=== PATIENT | male | born 1950 | race Caucasian/White ===

== ENCOUNTER 2016-09-19 01:48 | Emergency (ER) | payer OTHER, MEDICAID ==
[~2016-09-19] VITALS: Ht 177.8 cm; Wt 89.8 kg
[2016-09-19 01:51] VITALS: BP 154/86
--- NOTE | 2016-09-19 02:02 | NUR ---
AMBULATED TO ER BED 1
--- NOTE | 2016-09-19 02:03 | NUR ---
Patient being evaluated by physician at bedside.
--- NOTE | 2016-09-19 02:05 | NUR ---
66 YEARS OLD MALE C/O OF ANXIETY, AND EASILY GET AGITATED X4 DAYS. NO SOB/DISTRESS NOTED. HX OF CHRONIC BACK PAIN, HTN. ED MD EVALUATES AT BEDSIDE.
[2016-09-19] MEDS ORDERED: ALPRAZolam 0.5 MG TAB PO ONE (02:10)
[2016-09-19 02:44] VITALS: BP 155/97
== END 2016-09-19 02:44 | disposition home or self-care (01) ==
LOC: MED 01:48
DX: F41.9 Anxiety disorder, unspecified (principal); G89.29 Other chronic pain; R03.0 Elevated blood-pressure reading, without diagnosis of hypertension; F17.210 Nicotine dependence, cigarettes, uncomplicated; M54.9 Dorsalgia, unspecified; Z71.6 Tobacco abuse counseling; Z88.8 Allergy status to other drugs, medicaments and biological substances